=== PATIENT | male | born 1980 ===

== ENCOUNTER 2020-12-27 14:19 | Emergency (ER) | payer OTHER, SELFPAY ==
--- NOTE | 2020-12-27 15:04 | ED_ITS ---
HPI - Back Pain/Injury General: Chief Complaint: Back Pain/Injury Stated Complaint: Back Pain Time Seen by Provider: 12/27/20 15:03 History of Present Illness: HPI Narrative: Patient is a 40-year-old male comes to the ED with a back injury. Patient was at work and he bent over to lift up some materials and felt a sharp pain in his lower back dropped him to the ground. He denies any head trauma or loss of consciousness. He says the pain was very sharp in any movement causes more pain. He says the pain is rated 9 out of 10 and is localized over the spine in the lumbar region. He denies any pain radiating down legs. He does state that he has had some numbness into his thigh when he is standing up. He states it is hard to walk due to pain currently. He has not taken any medication to help with pain before coming to the ED. Denies pelvic anesthesia, bladder or bowel incontinence or weakness to labs. Denies any chest pain, shortness of breath, bladder or bowel symptoms. Associated symptoms: Deny abdominal pain, chills, dysuria, fatigue, fever(s), hematuria, nausea or vomiting Review of Systems Const: Denies: fever(s), chills or fatigue Eyes: Denies: change in vision or eye discomfort ENMT: Denies: throat pain, odynophagia, nasal discharge or nasal congestion Card: Denies: chest pain, palpitations, edema, swelling of feet/ankles, dyspnea on exertion or orthopnea Resp: Denies: dyspnea, productive cough or non-productive cough GI: Denies: abdominal pain, nausea, vomiting, diarrhea, constipation or hematochezia : Denies: flank pain, difficulty urinating, dysuria or hematuria Musc: Reports: back pain; Denies: neck pain or extremity swelling Skin/Breast: Denies: rash or new lesions Neuro: Denies: headache(s), numbness in extremities or weakness in extremities PFSH ED PFSH: Social History Smoking and tobacco status: never smoked Alcohol intake: never Physical Exam Narrative: EXAM NARRATIVE: Patient is a 40-year-old male that is sitting awkwardly in chair lab in the room. He appears in some pain and discomfort and is very stiff and limited movement during exam due to pain. Const: COMMON NORMALS: patient oriented x3 and alert GENERAL APPEARANCE: cooperative; not comfortable (Patient appears uncomfortable and in pain.) HENMT: COMMON NORMALS: normocephalic HEAD & SCALP: normocephalic MOUTH: Normal oral and palatal mucosa present THROAT: posterior oropharynx normal and uvula midline Neck/C-Spine: COMMON NORMALS: supple GENERAL: Yes normal visual inspection Resp: COMMON NORMALS: normal respiratory effort, No retractions, No use of accessory muscles and clear to auscultation bilaterally AUSCULTATION: clear to auscultation bilaterally Cardio: COMMON NORMALS: regular rate, regular rhythm, S1 normal heart sound p resent, S2 normal heart sound present, No gallops present (Cardio), No clicks present (Cardio), No murmurs present (Cardio) and Peripheral pulses 2+ throughout RATE: regular rate RHYTHM: regular rhythm HEART SOUNDS: S1 normal heart sound present and S2 normal heart sound present PERIPHERAL PULSES: Peripheral pulses 2+ throughout GI: COMMON NORMALS: Normal to inspection, nondistended, normoactive bowel sounds present, Soft to palpation, non-tender and no masses PALPATION: Yes Soft to palpation : COMMON NORMALS: Yes no CVA tenderness BLADDER/KIDNEY EXAM: Yes no CVA tenderness Back/Pelvis: COMMON NORMALS: no CVA tenderness LUMBAR SPINE/LOWER BACK: Yes pain with ROM, Yes lumbar spinal tenderness Lumbar spinal tenderness location: L2 and L3, Yes paraspinal muscle tenderness Lumbar paraspinal muscle tenderness: bilateral Bilateral lumbar paraspinal muscle tenderness: L2 and L3 and Yes straight leg raise positive right Extremity: COMMON NORMALS: normal to inspection Neuro: COMMON NORMALS: patient oriented x3 and moves all extremities SENSORIUM/ORIENTATION: Yes alert Skin: GENERAL SKIN EXAM: dry skin Course Vital Signs: Vital signs: Vital Signs Temperature 98.9 F 12/27/20 15:05 Pulse Rate 69 12/27/20 16:09 Respiratory Rate 14 12/27/20 16:09 Blood Pressure 139/79 12/27/20 16:09 Pulse Oximetry 96 12/27/20 16:09 MDM - Back Pain/Injury MDM Narrative: Medical decision making narrative: Patient is a 40-year-old male comes to the ED with acute lower back pain after injury. This is a workers comp injury and all appropriate paperwork was filled out. Patient was lifting an object at work and felt a sharp pain in back. Pain located in lower back and tenderness over lumbar spine and paraspinal lumbar muscles. Denies any cauda equina symptoms. He did state he had some trouble walking due to pain. CT of lumbar spine showed some mild foraminal stenosis and subarticular recess at L4 and L5 level. Some minimal disc protrusion around L2 as well. Patient diagnosed with lumbar disc disease and strain of lumbar region. He was given a dose of Toradol and Decadron while here in the ED. His symptoms did improve after meds. He was discharged and told to not go to work tomorrow but to show up at occupational health. He was sent with a prescription for Robaxin, Medrol Dosepak and ibuprofen 800s. Stretch lower back daily and massage lower back muscles daily as well. Return to ED precautions given. Patient understood and agree with plan. Imaging Data^: Other CT: Attestation: I personally reviewed and interpreted this imaging study as follows: Radiologist's impression: [place] [address] CT Scan Report Signed Patient: Diego Fowler Unit #: [id number] : [id number] Age/Sex: 40 / M ADM Date: 12/27/20 Loc: ER Room/Bed: Attending Dr: Ordering Provider/Ordering MD: Giancarlo Corbin Date of Service: 12/27/20 Procedure(s): CT lumbar spine wo con* [id number] Accession Number(s): [id number] Report Number: [id number] WS: [id number] CT LUMBAR SPINE, noncontrast. HISTORY: lumbar pain and injury TECHNIQUE: Contiguous 2.5 mm axial imaging are performed. Sagittal and coronal reformats are submitted and reviewed. All CT scans at [facility] use at least one of these dose optimization techniques: automated exposure control; mA and/or kV adjustment per patient size (includes targeted exams where dose is matched to clinical indication); or iterative reconstruction. IV contrast: None DLP: 2555.85 mGy.cm COMPARISON: None available. Straightening of the normal lumbar lordosis. Disc spaces are well-maintained. No fractures. L1-2: Normal. L2-3: Mild asymmetric annular disc bulging. Disc bulges asymmetrically to the RIGHT very minimal contact on the L2 nerve root. L3-4: Normal. L4-5: Diffuse annular disc bulging and very mild osteophytic ridging. There is mild central and bilateral subarticular recess and foraminal stenosis due to combination of disc disease and o steophyte disease. L5-S1: Mild broad-based disc bulging without significant stenosis. Visualized retroperitoneum is normal. CT/CT lumbar spine wo con* [id number] IMPRESSION: 1. Mild central, bilateral subarticular recess and foraminal stenosis at the L4-5 level. 2. Minimal asymmetric disc protrusion contacting the RIGHT L2 nerve root. Dictated By: Amanda Ludwig DO Signed By: Amanda Ludwig DO Signed Date/Time: 12/27/20 1600 DD/ 1557 Discharge Plan Discharge Patient Disposition: Home Clinical Impression: Lumbar disc disease Strain of lumbar region Qualifiers: Encounter type: initial encounter Qualified Code(s): S39.012A - Strain of muscle, fascia and tendon of lower back, initial encounter Condition: Stable Prescriptions: New Robaxin-750 750 mg tablet 750 mg PO Q8H Qty: 20 RF: 0 Medrol (Allen) 4 mg tablets,dose pack See Rx Instructions .ROUTE .COMPLEX Qty: 21 RF: 0 ibuprofen 800 mg tablet 800 mg PO Q8H PRN (Reason: pain) Qty: 30 RF: 0 No Action No Known Home Medications RF: 0 Discharge Orders: Discharge ED (Routine); Ordered 12/27/20 Ordered By: Giancarlo Corbin Referrals: Sherri Caraballo FNP [Primary Care Provider] - Discharge Diet: Regular Discharge Activity: Limit activity as instructed Patient Instructions: Low Back Strain (ED) Activity Restrictions/Additional Instructions: Follow-up with medical provider as directed in 7-10 days for reeavluation. Take medications as prescribed. Remember Robaxin can cause some drowsiness so take that at night before bed. Return to the ER or your medical provider if condition worsens. Please read and understand discharge instructions. If any questions, please ask. 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
[2020-12-27 15:05] VITALS: BP 139/79; PULSE 69; RESP 14; TEMP 37.2; O2SAT 96; BMI 28.8
--- NOTE | 2020-12-27 15:20 | CT_ITS ---
WS: [id number] CT LUMBAR SPINE, noncontrast. HISTORY: lumbar pain and injury TECHNIQUE: Contiguous 2.5 mm axial imaging are performed. Sagittal and coronal reformats are submitte d and reviewed. All CT scans at [facility] use at least one of these dose optimization te chniques: automated exposure control; mA and/or kV adjustment per patient size (includes targeted exa ms where dose is matched to clinical indication); or iterative reconstruction. IV contrast: None DLP: 2555.85 mGy.cm COMPARISON: None available. Straightening of the normal lumbar lordosis. Disc spaces are well-maintained. No fractures. L1-2: Normal. L2-3: Mild asymmetric annular disc bulging. Disc bulges asymmetrically to the RIGHT very minimal cont act on the L2 nerve root. L3-4: Normal. L4-5: Diffuse annular disc bulging and very mild osteophytic ridging. There is mild central and bilat eral subarticular recess and foraminal stenosis due to combination of disc disease and osteophyte dis ease. L5-S1: Mild broad-based disc bulging without significant stenosis. Visualized retroperitoneum is normal. CT/CT lumbar spine wo con* [id number] IMPRESSION: 1. Mild central, bilateral subarticular recess and foraminal stenosis at the L 4-5 level. 2. Minimal asymmetric disc protrusion contacting the RIGHT L2 nerve root.
[2020-12-27] MEDS: ketorolac 60 mg/2 mL INJ IM (15:51)
[2020-12-27] MEDS: dexamethasone 10 mg/mL INJ IM (15:56)
[2020-12-27 16:09] VITALS: BP 139/79; PULSE 69; RESP 14; O2SAT 96
== END 2020-12-27 16:36 | disposition home or self-care (01) ==
PROVIDERS: Emergency Provider Physician Assistant; PCP Nurse Practitioner
DX: S39.012A Strain of muscle, fascia and tendon of lower back, initial encounter (principal); M48.061 Spinal stenosis, lumbar region without neurogenic claudication; X50.1XXA Overexertion from prolonged static or awkward postures, initial encounter
CPT/HCPCS: 12345; 72131; 96372; 96375; 99281; 99283; J1100; J1885

== ENCOUNTER 2022-05-28 23:15 | Emergency (ER) | payer SELFPAY ==
[2022-05-28 23:31] VITALS: BP 159/92; PULSE 65; RESP 25; TEMP 36.8; O2SAT 100; BMI 28.0
--- NOTE | 2022-05-29 00:29 | CTR_ITS ---
PROCEDURE INFORMATION: Exam: CT Abdomen And Pelvis Without Contrast Exam date and time: 05/29/2022 1:14 AM Age: 41 years old Clinical indication: Abdominal pain; Localized; Right upper quadrant (ruq); Additional info: Ruq abd pain TECHNIQUE: Imaging protocol: Computed tomography of the abdomen and pelvis without contrast. Radiation optimization: All CT scans at this facility use at least one of these dose optimization techniques: automated exposure control; mA and/or kV adjustment per patient size (includes targeted exams where dose is matched to clinical indication); or iterative reconstruction. COMPARISON: US gall bladder [id number] 05/16/2022 3:19 PM RADIATION DOSE METRICS: Total DLP (mGy-cm): 1722.14 FINDINGS: Liver: No acute abnormality on noncontrast imaging. Gallbladder and bile ducts: Elongated gallbladder containing small gallstone or stones within the distal gallbladder fundus. No biliary ductal dilatation. Pancreas: No acute abnormality. No ductal dilation. Spleen: No acute abnormality. Adrenal glands: No acute abnormality. No mass. Kidneys and ureters: Tiny punctate non-obstructing right renal lower pole calculus. No hydronephrosis, hydroureter or distal urinary calculus. Stomach and bowel: Ingested contents within stomach. No significant large or small bowel distention. No evidence of diverticulitis. Appendix: No findings to suggest acute appendicitis. Intraperitoneal space: No significant fluid collection. No free air. Vasculature: No acute abnormality. No abdominal aortic aneurysm. Lymph nodes: No enlarged lymph nodes. Urinary bladder: Unremarkable as visualized. No bladder calculi. Reproductive: Unremarkable as visualized. Bones/joints: No acute osseous abnormality. No dislocation. Soft tissues: No significant soft tissue abnormalities. CT/CT abdomen pelvis wo con [id number] IMPRESSION: 1. Cholelithiasis. 2. Tiny punctate non-obstructing right renal lower pole calculus. 3. No evidence of distal urinary calculus or obstructive uropathy.
--- NOTE | 2022-05-29 00:29 | ED_ITS ---
HPI - Abdominal Pain General: Chief Complaint: Abdominal Pain Stated Complaint: abd pain Time Seen by Provider: 05/28/22 23:24 Source: patient Mode of arrival: ambulatory Limitations: no limitations History of Present Illness: 41-year-old male who states that over the last 2 weeks has been having some right upper quadrant abdominal pain. He states he was seen last week at [facility] and ultrasound showed a large liver no acute abnormalities he states. He states that today though over the last 6 to 7 hours he has had extreme pain in the right upper quadrant is much worse with movement and palpation he denies any vomiting or diarrhea denies any fever states his pain is currently a 8 out of 10. Associated Symptoms: Reports nausea; Denies chills, dysuria and fever(s) Review of Systems Const: Denies: fever(s), chills, body aches or change in appetite Eyes: Denies: blurry vision or eye discomfort ENMT: Denies: throat pain or dental pain Card: Denies: chest pain Resp: Denies: dyspnea GI: Reports: abdominal pain and nausea : Denies: dysuria Musc: Denies: neck pain or back pain Skin/Breast: Denies: rash Neuro: Denies: headache(s) Psych: Denies: depression Joel/Lymph: Denies: easy bruising All/Imm: Denies: urticaria PFSH ED PFSH: Social History Smoking and tobacco status: never smoked Alcohol intake: never Physical Exam Const: COMMON NORMALS: no acute distress, patient oriented x3 and healthy appearing HENMT: COMMON NORMALS: normocephalic and atraumatic HEAD & SCALP: normocephalic and atraumatic Eye: COMMON NORMALS: Equal, round and reactive pupils present and EOMs intact bilaterally PUPIL: Yes Equal, round and reactive pupils present Neck/C-Spine: COMMON NORMALS: full ROM and supple Chest: COMMONS NORMALS: normal inspection of the chest and normal palpation of entire chest wall Resp: COMMON NORMALS: normal respiratory effort, No retractions, No use of a ccessory muscles and clear to auscultation bilaterally AUSCULTATION: clear to auscultation bilaterally Cardio: COMMON NORMALS: regular rate, regular rhythm and No murmurs present (Cardio) RATE: regular rate RHYTHM: regular rhythm GI: COMMON NORMALS: Normal to inspection, nondistended, normoactive bowel sounds present, Soft to palpation and no masses PALPATION: Yes Soft to palpation and Yes Tenderness to palpation present (GI) Details: RUQ Extremity: COMMON NORMALS: normal to inspection and full ROM Neuro: COMMON NORMALS: patient oriented x3, moves all extremities and no focal motor deficits Psych: COMMON NORMALS: mental status grossly normal, Normal thought process present and cooperative THOUGHT PROCESS: Normal thought process present Skin: COMMON NORMALS: no rashes or lesions noted and no wounds GENERAL SKIN EXAM: no rashes or lesions noted Course Vital Signs: Vital signs: Vital Signs Temperature 98.3 F 05/28/22 23:31 Pulse Rate 65 05/28/22 23:31 Respiratory Rate 25 H 05/28/22 23:31 Blood Pressure 159/92 05/28/22 23:31 Pulse Oximetry 100 05/28/22 23:31 MDM - Abdominal Pain Medical Decision Making Patient presents here with abdominal pain since resolved his exam here is benign currently he does have gallstones likely having biliary colic no signs of acute infection he is stable for discharge he is to follow-up with surgery and return if worsening he understands and agrees to plan. Lab Data : 05/29/22 00:50 05/29/22 00:50 Labs/Radiology: Radiology Impressions Abdomen/Pelvis CT 05/29/22 00:29 IMPRESSION: 1. Cholelithiasis. 2. Tiny punctate non-obstructing right renal lower pole calculus. 3. No evidence of distal urinary calculus or obstructive uropathy. Laboratory Results WBC 10.8 10^3/uL (4.0-10.0) H 05/29/22 00:50 RBC 4.80 10^6/uL (4.1-5.3) 05/29/22 00:50 Hgb 14.0 g/dL (11.7-16.6) 05/29/22 00:50 Hct 41.9 % (42.0-52.0) L 05/29/22 00:50 MCV 87.3 fl (80-94) 05/29/22 00:50 MCH 29.2 pg (28.0-34.0) 05/29/22 00:50 MCHC 33.4 g/dL (30.0-36.0) 05/29/22 00:50 RDW 12.4 % (12.1-15.1) 05/29/22 00:50 Plt Count 267 10^3/cmm (130-400) 05/29/22 00:50 MPV 11.3 fL (7.4-10.4) H 05/29/22 00:50 Neut % (Auto) 67.9 % 05/29/22 00:50 Lymph % (Auto) 18.4 % 05/29/22 00:50 [place] % (Auto) 8.4 % 05/29/22 00:50 Eos % (Auto) 3.9 % 05/29/22 00:50 Baso % (Auto) 0.8 % 05/29/22 00:50 Neut # (Auto) 7.35 10^3/uL (1.8-7.7) 05/29/22 00:50 Lymph # (Auto) 2.0 10^3/uL (0.8-4.8) 05/29/22 00:50 [place] # (Auto) 0.9 10^3/uL (0.2-0.9) 05/29/22 00:50 Eos # (Auto) 0.4 10^3/uL (0.0-0.8) 05/29/22 00:50 Baso # (Auto) 0.1 10^3/uL (0.0-0.1) 05/29/22 00:50 Nucleated RBC % (auto) 0 % 05/29/22 00:50 Nucleated RBCs # 0.0 /100WBC 05/29/22 00:50 Sodium 137 mmol/L (136-145) 05/29/22 00:50 Potassium 4.0 mmol/L (3.5-5.1) 05/29/22 00:50 Chloride 101 mmol/L (98-107) 05/29/22 00:50 Carbon Dioxide 27 mmol/L (22-29) 05/29/22 00:50 Anion Gap 13.0 (5-19) 05/29/22 00:50 BUN 18 mg/dL (6-20) 05/29/22 00:50 Creatinine 0.9 mg/dL (0.7-1.2) 05/29/22 00:50 GFR Calculation 93.0 mL/min (90-130) 05/29/22 00:50 Glucose 127 mg/dL (65-115) H 05/29/22 00:50 Calculated Osmolality 287 mOsm/kg (285-295) 05/29/22 00:50 Calcium 9.1 mg/dL (8.5-10.5) 05/29/22 00:50 Total Bilirubin 0.3 mg/dL (0.15-1.2) 05/29/22 00:50 AST 20 U/L (0-40) 05/29/22 00:50 ALT 27 U/L (0-41) 05/29/22 00:50 Alkaline Phosphatase 54 IU/L (40-130) 05/29/22 00:50 Total Protein 7.0 g/dL (6.6-8.7) 05/29/22 00:50 Albumin 4.3 g/dL (3.5-5.2) 05/29/22 00:50 Globulin 2.7 g/dL (1.3-4.6) 05/29/22 00:50 Lipase 25 U/L (13-60) 05/29/22 00:50 Discharge Plan Discharge Patient Disposition: Home Clinical Impression: Cholelithiasis Abdominal pain Qualifiers: Abdominal location: right upper quadrant Qualified Code(s): R10.11 - Right upper quadrant pain Condition: Stable Prescriptions: New hydrocodone-acetaminophen 5-325 mg tablet 1 tab PO Q6H PRN (Reason: pain) Qty: 14 0RF ondansetron 4 mg tablet,disintegrating 4 mg PO Q6H PRN (Reason: nausea and vomiting) Qty: 14 0RF No Action Robaxin-750 750 mg tablet 750 mg PO Q8H Qty: 20 0RF Medrol (Allen) 4 mg tablets,dose pack See Rx Instructions .ROUTE .COMPLEX Qty: 21 0RF Rx Instructions: orally per package directions ibuprofen 800 mg tablet 800 mg PO Q8H PRN (Reason: pain) Qty: 30 0RF Discharge Orders: Discharge ED (Routine); Ordered 05/29/22 Ordered By: Mary Sharma Referrals: Jalen Santiago DO [Physician] - 1-3 days Sherri Caraballo FNP [Primary Care Provider] - Discharge Diet: Advance as tolerated Discharge Activity: Resume usual activity Patient Instructions: Abdominal Pain (ED), Opioid Safety Coding Level of Care Code 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
[2022-05-29] MEDS: ondansetron 2 mg/ML SDV 2 mL 4 MG IVP (00:45)
[2022-05-29] MEDS: sodium chloride 0.9% 1,000 ML 999 ML IV (00:45)
[2022-05-29 00:55] LABS: Basophils # 0.1 10^3/uL (0.0-0.1); Basophils % 0.8 %; Eosinophils # 0.4 10^3/uL (0.0-0.8); Eosinophils % 3.9 %; Hematocrit 41.9 % (42.0-52.0); Lymphocytes % 18.4 %; Mean Corpuscular HGB Conc 33.4 g/dL (30.0-36.0); Mean Corpuscular Hemoglobin 29.2 pg (28.0-34.0); Mean Corpuscular Volume 87.3 fl (80-94); Mean Platelet Volume 11.3 fL (7.4-10.4); Monocytes # 0.9 10^3/uL (0.2-0.9); Monocytes % 8.4 %; Neutrophils # 7.35 10^3/uL (1.8-7.7); Neutrophils % 67.9 %; Nucleated Red Blood Cells % 0 %; Platelet Count 267 10^3/cmm (130-400); Red Cell Distribution Width 12.4 % (12.1-15.1); White Blood Count 10.8 10^3/uL (4.0-10.0)
[2022-05-29 01:11] LABS: Alanine Aminotransferase 27 U/L (0-41); Albumin Level 4.3 g/dL (3.5-5.2); Alkaline Phosphatase 54 IU/L (40-130); Aspartate Amino Transferase 20 U/L (0-40); Blood Urea Nitrogen 18 mg/dL (6-20); Calcium 9.1 mg/dL (8.5-10.5); Carbon Dioxide 27 mmol/L (22-29); Chloride 101 mmol/L (98-107); Globulin 2.7 g/dL (1.3-4.6); Glucose 127 mg/dL (65-115); Lipase 25 U/L (13-60); Osmolality Calculated 287 mOsm/kg (285-295); Sodium 137 mmol/L (136-145); Total Bilirubin 0.3 mg/dL (0.15-1.2)
[2022-05-29 02:24] VITALS: BP 146/93; PULSE 62; RESP 18; O2SAT 99
--- NOTE | 2022-05-30 10:00 | DCPLANNER ---
Addendum entered by Danielle Cope 06/19/22 14:45: trauma program manager was sent the following message about follow up appointment from general surgery front staff: Patient is working with FA and will call us once that is lined out.. Original Note: trauma program manager had message to schedule a follow up appointment for patient with general surgery. trauma program manager sent patients information to the front office staff at general surgery. Patients information will be printed and reviewed. Clinic will call patient with appointment information.
== END 2022-05-29 02:25 | disposition home or self-care (01) ==
PROVIDERS: Emergency Provider Emergency Medicine; PCP Nurse Practitioner
DX: K80.20 Calculus of gallbladder without cholecystitis without obstruction (principal)
CPT/HCPCS: 74176; 80053; 83690; 85025; 96361; 96374; 99284; J2405; J7030